=== PATIENT | male | born 1990 | race Caucasian/White ===

== ENCOUNTER 2018-09-11 17:36 | Emergency (ER) | payer SELFPAY, OTHER, MEDICAID | END 2018-09-11 18:09 | disposition home or self-care (01) | LOC: E/R 17:36 | DX: S50.362A Insect bite (nonvenomous) of left elbow, initial encounter (principal); R03.0 Elevated blood-pressure reading, without diagnosis of hypertension; W57.XXXA Bitten or stung by nonvenomous insect and other nonvenomous arthropods, initial encounter; Y92.9 Unspecified place or not applicable; Z79.82 Long term (current) use of aspirin; Z87.891 Personal history of nicotine dependence | CPT/HCPCS: 99283 ==